=== PATIENT | female | born 1990 | race Caucasian/White ===

== ENCOUNTER 2017-09-11 18:59 | Emergency (ER) | END 2017-09-12 00:55 | disposition home or self-care (01) ==

== ENCOUNTER 2018-04-14 21:00 | Outpatient (CLI) | END 2018-04-15 02:35 | disposition home or self-care (01) ==

== ENCOUNTER 2018-05-09 22:10 | Inpatient (IN) | END 2018-05-12 12:55 | disposition home or self-care (01) | DRG 807 ==